=== PATIENT | female | born 1995 | race Caucasian/White ===

== ENCOUNTER 2018-07-10 12:08 | Emergency (ER) | payer BC ==
--- NOTE | 2018-07-10 13:00 | EDM.PDOC ---
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 [place] Onset: Today Duration: Hour(s):, Constant Location: Reports: Abdomen Quality: Reports: Other Severity: Mild Improves with: Reports: Rest Worsens with: Reports: None - Related Data Allergies Allergy/AdvReac Type Severity Reaction Status Date / Time cephalexin [Cephalexin] Allergy Rash Verified 07/10/18 12:13 Home Meds: Home Meds [id number]/Iron Fumarate/FA/DSS [ 19 Tablet] 1 each PO DAILY 05/05/18 [ History] Past Medical History - Past Health History Medical/Surgical History: Denies Medical/Surgical History 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: , Other (See Below) Other SENIOR ACCOUNT DIRECTOR History: 2016 Social & Family History - Tobacco Use Smoking Status *Q: Former Smoker Used Tobacco, but Quit: Yes Month/Year Tobacco Last Used: 2017 - Recreational Drug Use Recreational Drug Use: No - Living Situation & Occupation Living situation: Reports: Single Occupation: Employed ED ROS GENERAL - Review of Systems Review Of Systems: See Below Constitutional: Reports: Night Sweats HEENT: Reports: No Symptoms Respiratory: Reports: No Symptoms Cardiovascular: Reports: No Symptoms Endocrine: Reports: No Symptoms GI/Abdominal: Reports: No Symptoms : Reports: No Symptoms Musculoskeletal: Reports: No Symptoms Skin: Reports: No Symptoms Neurological: Reports: No Symptoms Psychiatric: Reports: No Symptoms Hematologic/Lymphatic: Reports: No Symptoms Immunologic: Reports: No Symptoms ED EXAM, GENERAL - Physical Exam Exam: See Below Free Text/Narrative:: Patient is a 23-year-old 38 weeks gestation who was not feeling well at work they did her blood pressure blood pressure was slightly elevated at 152/70 because she is 30 weeks gestation that were brought her in for evaluation Exam Limited By: No Limitations General Appearance: Alert, WD/WN, No Apparent Distress Ears: Normal External Exam, Normal Canal, Hearing Grossly Normal, Normal TMs Ear Exam: Bilateral Ear: Auricle Normal, Canal Normal, TM normal Nose: Normal Inspection, Normal Mucosa, No Blood Throat/Mouth: Normal Inspection, Normal Lips, Normal Teeth, Normal Gums, Normal Oropharynx, Normal Voice, No Airway Compromise Head: Atraumatic, Normocephalic Neck: Normal Inspection, Supple, Non-Tender, Full Range of Motion Respiratory/Chest: No Respiratory Distress, Lungs Clear, Normal Breath Sounds, No Accessory Muscle Use, Chest Non-Tender Cardiovascular: Normal Peripheral Pulses, Regular Rate, Rhythm, No Edema, No Gallop, No JVD, No Murmur, No Rub GI/Abdominal: Normal Bowel Sounds, Soft, Non-Tender, No Organomegaly, No Distention, No Abnormal Bruit, No Mass (Female) Exam: Normal External Exam, Normal Bimanual Exam, Heart Tones , Other (Cervix closed thick and high head not engaged but palpable heart tones good variability 136) Back Exam: Normal Inspection, Full Range of Motion, NT Extremities: Normal Inspection, Normal Range of Motion, Non-Tender, Normal Capillary Refill, No Pedal Edema Neurological: Alert, Oriented, CN II-XII Intact, Normal Cognition, Normal Gait, Normal Reflexes, No Motor/Sensory Deficits Psychiatric: Normal Affect, Normal Mood Skin Exam: Warm, Dry, Intact, Normal Color, No Rash Course - Vital Signs Last Recorded V/S: Last Vital Signs Temp 97.6 F 07/10/18 12:10 Pulse 80 07/10/18 12:10 Resp 16 07/10/18 12:10 BP 144/84 H 07/10/18 12:10 Pulse Ox 99 07/10/18 12:10 - Orders/Labs/Meds Labs: Laboratory Tests 07/10/18 07/10/18 Range/Units 12:31 12:40 WBC 12.1 H (4.0-10.2) K/uL RBC 4.28 (3.77-5.09) M/uL Hgb 12.9 (11.7-15.5) g/dL Hct 37.9 (34.0-46.0) % MCV 88.6 D (84.0-98.0) fL MCH 30.1 (28.2-33.3) pg MCHC 34.0 (31.7-36.0) g/dL RDW 13.4 (11.2-14.1) % Plt Count 154 D (150-350) K/uL Neut % (Auto) 68.9 (45.0-80.0) % Lymph % (Auto) 18.0 (10.0-50.0) % [place] % (Auto) 10.8 (2.0-14.0) % Eos % (Auto) 2.1 (0.0-5.0) % Baso % (Auto) 0.2 (0.0-2.0) % Neut # (Auto) 8.31 H (1.40-7.00) K/uL Lymph # (Auto) 2.18 (0.50-3.50) K/uL [place] # (Auto) 1.31 H (0.00-1.00) K/uL Eos # (Auto) 0.25 (0.00-0.50) K/uL Baso # (Auto) 0.03 (0.00-0.20) K/uL Specimen Type Urinvoid Urine Color Yellow Urine Appearance Clear Urine pH 7.0 (5.0-9.0) Ur Specific [place] 1.010 (1.005-1.030) Urine Protein Negative (NEGATIVE) mg/dL Urine Glucose (UA) Negative (NEGATIVE) mg/dL Urine Ketones Negative (NEGATIVE) mg/dL Urine Occult Blood Negative (NEGATIVE) Urine Nitrite Negative (NEGATIVE) Urine Bilirubin Negative (NEGATIVE) Urine Urobilinogen 0.2 (0.2-1.0) E.U./dL Ur Leukocyte Esterase Trace H (NEGATIVE) Urine RBC Not seen /HPF Urine WBC 0-5 /HPF Ur Epithelial Cells Moderate H /LPF Urine Bacteria Few (NONE TO FEW) /HPF Departure - Departure Time of Disposition: 13:10 Disposition: Home, Self-Care 01 Condition: Good Clinical Impression: 38 weeks gestation of - Discharge Information *PRESCRIPTION DRUG MONITORING PROGRAM REVIEWED*: No *COPY OF PRESCRIPTION DRUG MONITORING REPORT IN PATIENT YELITZA: No Referrals: Ruth Bourgeois PA [Primary Care Provider] - Care Plan Goals: Patient will be sent home to rest at home follow-up with her OB doctor tomorrow
== END 2018-07-10 13:25 | disposition home or self-care (01) ==
LOC: LL.ED 12:08
DX: O13.3 Gestational [pregnancy-induced] hypertension without significant proteinuria, third trimester (principal); Z3A.38 38 weeks gestation of pregnancy; Z87.891 Personal history of nicotine dependence; Z79.899 Other long term (current) drug therapy; Z88.1 Allergy status to other antibiotic agents
CPT/HCPCS: 36415; 81001; 85025; 99284